=== PATIENT | female | born 1995 | race Two or more races ===

== ENCOUNTER 2022-12-11 07:59 | Emergency (ER) | payer OTHER ==
[~2022-12-11] VITALS: Ht 157.5 cm; Wt 103.4 kg
[2022-12-11] MEDS ORDERED: PRENATAL + DHA1 EAC1 PO (08:07)
== END 2022-12-11 12:23 | disposition home or self-care (01) ==
LOC: ER 07:59
DX: O98.813 Other maternal infectious and parasitic diseases complicating pregnancy, third trimester (principal); J10.1 Influenza due to other identified influenza virus with other respiratory manifestations; Z3A.31 31 weeks gestation of pregnancy; Z20.822 Contact with and (suspected) exposure to COVID-19